=== PATIENT | female | born 1995 | race Caucasian/White ===

== ENCOUNTER 2025-03-29 19:00 | Inpatient (IN) | payer BC, OTHER ==
[2025-03-29] MEDS ORDERED: Diphenoxylate HCl/Atropine Tablet PO PRN (23:40)
[2025-03-29] MEDS ORDERED: Ibuprofen 800 MG TAB PO PRN (23:40)
[2025-03-29] MEDS ORDERED: Lidocaine 1% (PF) 30 ML VIAL SC PRN (23:40)
[2025-03-29] MEDS ORDERED: Ondansetron PF 4 MG/2 ML Vial IVP PRN (23:40)
[2025-03-29] MEDS ORDERED: Oxytocin 30 units/NS 500 ML 500 ML IV SCH (23:40)
[2025-03-29] MEDS ORDERED: hydrALAZINE 20 MG/ML VIAL SLOW IVP PRN (23:40)
[2025-03-29] MEDS ORDERED: Carboprost 250 MCG/ML AMP IM PRN (23:40)
[2025-03-29] MEDS ORDERED: HYDROcodone/Acetaminophen 5/325 mg Tablet PO PRN (23:40)
[2025-03-29] MEDS ORDERED: Tranexamic Acid 1,000 MG/10 ML VIAL IVP PRN (23:40)
[2025-03-29] MEDS ORDERED: Methylergonovine 0.2 MG/ML VIAL IM PRN (23:40)
[2025-03-29] MEDS ORDERED: Acetaminophen 500 MG TAB PO PRN (23:40)
[2025-03-30 00:15] LABS: Hematocrit 34.2 % (34.9-44.5); Hemoglobin 11.6 g/dL (12.0-15.5); Mean Corpuscular Hemoglobin 29.1 pg (27.0-33.0); Mean Corpuscular Volume 85.7 fL (81.6-98.3); Platelet Count 236 10x3/uL (150-450); Red Blood Cell (RBC) Count 3.99 10x6/uL (3.90-5.03); White Blood Cell (WBC) Count 10.16 10x3/uL (3.5-10.5)
[2025-03-30 00:45] LABS: Syphilis Antibody Index 0.07 S/CO (<1.00 Non-Reactive)
[2025-03-30 00:46] VITALS: BMI 26.6
[2025-03-30 00:46] LABS: Hep B Surf Ag - L&D Non-Reactive S/CO (NonReactive)
[2025-03-30] MEDS: fentaNYL/Ropivacaine Epidural 100 ML ONE (08:51)
[2025-03-30] MEDS: Oxytocin 30 units/NS 500 ML 500 ML IV SCH (08:53)
[2025-03-30] MEDS ORDERED: diphenhydrAMINE 50 MG/ML VIAL IVP PRN ×2 (09:10→19:58)
[2025-03-30] MEDS ORDERED: Ondansetron PF 4 MG/2 ML Vial IVP PRN ×3 (09:10→19:58)
[2025-03-30] MEDS ORDERED: Communication Order-Pharmacy FS SCH ×2 (09:15→20:00)
[2025-03-30] MEDS: fentaNYL 2 mcg/Ropivacaine 0.2% Epidural 100 ML CADD EPIDURAL SCH (17:38)
[2025-03-30] MEDS ORDERED: Meperidine HCl/PF 25 MG (1 mL) VIAL SLOW IVP PRN (19:58)
[2025-03-30] MEDS ORDERED: Ketorolac Tromethamine 30 MG (1 mL) VIAL IVP PRN (19:58)
[2025-03-30] MEDS ORDERED: HYDROmorphone 0.5 MG/0.5 ML SYRINGE SLOW IVP PRN (19:58)
[2025-03-30] MEDS ORDERED: Ketorolac Tromethamine 30 MG (1 mL) VIAL IVP SCH (20:00)
[2025-03-31] MEDS ORDERED: Lanolin Ointment 7 GM TUBE TOP PRN (00:41)
[2025-03-31] MEDS ORDERED: Ondansetron PF 4 MG/2 ML Vial IVP PRN (00:41)
[2025-03-31] MEDS ORDERED: diphenhydrAMINE 25 MG CAP PO PRN (00:41)
[2025-03-31] MEDS ORDERED: hydrALAZINE 20 MG/ML VIAL SLOW IVP PRN (00:41)
[2025-03-31] MEDS ORDERED: Bisacodyl 10 MG SUPP PR PRN (00:41)
[2025-03-31] MEDS ORDERED: Simethicone Chewable 80 MG TAB PO PRN (00:41)
[2025-03-31] MEDS: Ketorolac Tromethamine 30 MG (1 mL) VIAL IVP SCH (03:36)
[2025-03-31 04:31] LABS: Hematocrit 29.1 % (34.9-44.5); Hemoglobin 9.6 g/dL (12.0-15.5); Mean Corpuscular Hemoglobin 29.1 pg (27.0-33.0); Mean Corpuscular Volume 88.2 fL (81.6-98.3); Platelet Count 204 10x3/uL (150-450); Red Blood Cell (RBC) Count 3.30 10x6/uL (3.90-5.03); White Blood Cell (WBC) Count 18.39 10x3/uL (3.5-10.5)
[2025-03-31] MEDS: Famotidine/PF 20 mg/2ml Vial ONE (07:33)
[2025-03-31] MEDS: CEFAZOLIN 2 GM VIAL ONE (07:33)
[2025-03-31] MEDS: Azithromycin 500 MG VIAL ONE (07:33)
[2025-03-31] MEDS: Pantoprazole 40 MG DR.TAB PO SCH (07:33)
[2025-03-31] MEDS: Ondansetron PF 4 MG/2 ML Vial ONE (07:34)
[2025-03-31] MEDS: Ferrous Sulfate 325 MG TAB PO SCH ×2 (07:35→09:10)
[2025-03-31] MEDS ORDERED: Meperidine HCl/PF 25 MG (1 mL) VIAL IM PRN (09:00)
[2025-03-31] MEDS ORDERED: Bupivacaine HCl 0.5%/Epinephrine 1:200,000/PF 30 ml Vial ONE (18:39)
[2025-03-31] MEDS ORDERED: Bupivacaine 0.25% HCL 30 ML VIAL ONE (18:39)
[2025-03-31] MEDS: Ibuprofen 800 MG TAB PO SCH (22:05)
[2025-04-01] MEDS: HYDROcodone/Acetaminophen 5/325 mg Tablet PO PRN ×2 (09:22→16:28)
[2025-04-01] MEDS: Acetaminophen 325 MG TAB PO PRN (19:39)
[2025-04-01] MEDS: Boostrix 0.5 ML (Tdap) VIAL (>/=7 yrs of age) IM ONE (21:21)
[2025-04-02 14:56] VITALS: BP 120/71; TEMP 98.6
== END 2025-04-02 16:30 | disposition home or self-care (01) | DRG 788 ==
LOC: CSHLD 20:19 → CSHPP 03-30 22:50
PROVIDERS: ADMIT Family Medicine; ATTEND Family Medicine
PROC: 10D00Z1 Extraction of Products of Conception, Low, Open Approach (ICD-10-PCS; principal; 2025-03-30)
PROC: 10H07YZ Insertion of Other Device into Products of Conception, Via Natural or Artificial Opening (ICD-10-PCS; 2025-03-30)
DX: O36.63X0 Maternal care for excessive fetal growth, third trimester, not applicable or unspecified (principal); O48.0 Post-term pregnancy; O62.1 Secondary uterine inertia; O76 Abnormality in fetal heart rate and rhythm complicating labor and delivery; Z37.0 Single live birth; Z3A.40 40 weeks gestation of pregnancy
CPT/HCPCS: 36415; 51702; 85027; 86780; 86850; 86900; 86901; 87340; C1889; J0595; J0665; J1885; J2274; J2405; J2550; J2590; J3010; J7120